=== PATIENT | male | born 1955 | race Caucasian/White ===

== ENCOUNTER → 2020-07-06 | Outpatient (CLI) | payer MEDICARE, OTHER ==
[~2020-07-06] MED LIST: CEFUROXIME500 MG PO; COMBIVENT0.074 GM/I INH; DULERA 100 MCG8.8 GM INH; HYDROCHLOROTH12.5 MG PO; IPRAT-ALBUT 0.5-3 ML NEB; LASIX20 MG PO; LIPITOR TAB 2020 MG PO; LISINOPRIL40 MG PO; LOPRESSOR 25 MG25 MG PO; LORTAB 7.5-3251 EACH PO; MUCINEX600 MG PO; NORVASC 5 MG TAB5 MG PO; PLAVIX 75 MG TA75 MG PO; PREDNISONE20 MG PO; PRINIVIL20 MG PO
== END ==
LOC: HEART 5 09:01
DX: J44.9 Chronic obstructive pulmonary disease, unspecified (principal); R94.2 Abnormal results of pulmonary function studies; F17.210 Nicotine dependence, cigarettes, uncomplicated
CPT/HCPCS: 94010; 94729

== ENCOUNTER 2021-09-22 14:58 | Emergency (ER) | payer OTHER ==
[2021-09-22 16:05] LABS: HEMOGLOBIN 13.4 gm/dl (14.0-17.5); RED BLOOD COUNT 4.48 M/UL (4.20-5.50); WHITE BLOOD COUNT 15.5 K/UL (4.5-11.0)
[2021-09-22 16:44] LABS: BUN/CREATININE RATIO 17 (0-10)
[2021-09-22] MEDS ORDERED: PREDNISONE 20 M20 MG PO (18:09)
[2021-09-22] MEDS ORDERED: MORGIDOX100 MG PO (18:09)
== END 2021-09-22 18:42 | disposition home or self-care (01) ==
LOC: ER1 14:58
DX: J44.1 Chronic obstructive pulmonary disease with (acute) exacerbation (principal); E11.9 Type 2 diabetes mellitus without complications; R04.2 Hemoptysis; Z20.822 Contact with and (suspected) exposure to COVID-19
CPT/HCPCS: 0240U; 36600; 71045; 80053; 81001; 82550; 82553; 82803; 83605; 84484; 85025; 85379; 87040; 87070; 87205; 93005; 94664; 99284; J7030; Q9967